=== PATIENT | female | born 1980 | race Caucasian/White ===

== ENCOUNTER 2019-10-19 11:32 | Emergency (ER) | payer SELFPAY ==
[2019-10-19 11:53] LABS: ABSOLUTE BASOPHILS # (AUTO) 0.1 10^3/uL (0.0-0.2); ABSOLUTE EOSINOPHILS # (AUTO) 0.3 10^3/uL (0.0-0.6); ABSOLUTE LYMPHOCYTES (AUTO) 2.2 10^3/uL (0.5-4.7); ABSOLUTE MONOCYTES (AUTO) 0.6 10^3/uL (0.1-1.4); EOSINOPHILS % (AUTO) 3.5 % (0-6); HEMATOCRIT 40.7 % (36.0-47.0); HEMOGLOBIN 13.9 g/dL (12.0-15.5); INTERNATIONAL RATION (INR) 1.06; LYMPHOCYTES % (AUTO) 31.2 % (13-45); MEAN CORPUSCULAR HEMOGLOBIN 27.6 pg (27.0-33.4); MEAN CORPUSCULAR HGB CONC 34.2 g/dL (32.0-36.0); MEAN CORPUSCULAR VOLUME 81 fl (80-97); MONOCYTES % (AUTO) 8.7 % (3-13); PLATELET COUNT 304 10^3/uL (150-450); RED BLOOD COUNT 5.04 10^6/uL (3.72-5.28); RED CELL DISTRIBUTION WIDTH 13.9 % (11.5-14.0); SEGMENTED NEUTROPHILS % (AUTO) 55.6 % (42-78); TOTAL CELLS COUNTED % (AUTO) 100 %; WHITE BLOOD COUNT 7.2 10^3/uL (4.0-10.5)
[2019-10-19 11:54] LABS: PARTIAL THROMBOPLASTIN TIME 28.8 SEC (23.5-35.8)
--- NOTE | 2019-10-19 11:56 | ER Document Report ---
ED Neuro Symptoms/Deficit - General Stated Complaint: POSSIBLE STROKE Mode of Arrival: Medic Information source: Patient, Emergency Med Personnel TRAVEL OUTSIDE OF THE [place] IN LAST 30 DAYS: Yes - HPI Notes: Patient presents with the sudden onset of trouble speaking at 10:40 AM this morning. Last known well time will be 10:40 AM on 10/19/2019. Patient says that she woke up this morning with a headache. Apparently was mild to moderate and diffuse. It was constant and a throbbing sensation. She states she does not normally get migraines. 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 She also states that both sides of her face feel numb. Patient denies any vision changes. She has not noticed any trouble swallowing. She has had trouble finding words. She also feels that her arms and legs are weak. She has had no nausea. No fevers no recent falls or trauma. No similar episodes in the past that is known. - Related Data Allergies/Adverse Reactions: Sulfa (Sulfonamide Antibiotics) Allergy (Verified 10/19/19 11:47) Past Medical History - General Information source: Patient - Social History Smoking Status: Never Smoker Chew tobacco use (# tins/day): No Frequency of alcohol use: None Drug Abuse: None Family History: Reviewed & Not Pertinent Patient has suicidal ideation: No Patient has homicidal ideation: No Review of Systems - Review of Systems Constitutional: denies: Chills, Fever Cardiovascular: denies: Chest pain, Palpitations Respiratory: denies: Cough, Short of breath -: Yes All other systems reviewed and negative Physical Exam - Vital signs Vitals: Temp Resp Pulse Ox 98.5 F 19 100 10/19/19 11:39 10/19/19 11:39 10/19/19 11:39 Interpretation: Hypertensive - General General appearance: Alert, Anxious In distress: None - HEENT Head: Normocephalic, Atraumatic Eyes: Normal Pupils: PERRL - Respiratory Respiratory status: No respiratory distress Chest status: Nontender Breath sounds: Normal Chest palpation: Normal - Cardiovascular Rhythm: Regular Heart sounds: Normal auscultation Murmur: No - Abdominal Inspection: Normal Distension: No distension Bowel sounds: Normal Tenderness: Nontender Organomegaly: No organomegaly - Back Back: Normal, Nontender - Extremities General upper extremity: Normal inspection, Nontender, Normal color, Normal ROM, Normal temperature General lower extremity: Normal inspection, Nontender, Normal color, Normal ROM, Normal temperature, Normal weight bearing. No: Miladis's sign - Neurological Neuro grossly intact: Yes Cognition: Normal Orientation: AAOx4 Star Coma Scale Eye Opening: Spontaneous Yemi Coma Scale Verbal: Oriented Star Coma Scale Motor: Obeys Commands Star Coma Scale Total: 15 Speech: Other - Patient articulates words normally but seems to stutter and have trouble finding words. Cranial nerves: Normal Cerebellar coordination: Other - Patient's [id number] is normal bilaterally. Due to bilateral lower extremity weakness she has trouble bilaterally with [id number]. 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 - Psychological Associated symptoms: Anxious, Tearful - Skin Skin Temperature: Warm Skin Moisture: Dry Skin Color: Normal Course - Re-evaluation Re-evalutation: 10/19/19 11:55 I immediately assessed the patient upon arrival. Patient went straight to CT s can. CT scan is returned negative. I then performed a NIH stroke scale. This was done on the paper packet and I signed and dated this form. She was an NIH stroke scale of 7 upon presentation. I have paged the neurologist from [facility] at approximate 11:50 AM and I am currently awaiting return phone call. I reassessed patient approximately 12:15 PM. She has significant improvement in the left upper extremity as she no longer has a drift. She also has significant improvement of her lower extremities and can hold both legs off the bed against gravity for 10 seconds. She also has significant improvement of her speech and it is essentially normal now. I have discussed the case with the neurologist at [facility] and since she has such rapid improvement we will hold off on TPA and try to obtain an MRI stat. 10/19/19 12:22 10/19/19 14:58 Patient reexamined at this time. Patient's neurological exam is back to normal. Patient has a negative MRI and CT scan. I have discussed the case with neurology who feels that no further intervention or imaging is required. Patient is not a TPA candidate due to all symptoms resolving and have been negative MRI and CT. Patient now states she did have a similar episode 2 to 3 years ago that was a complex migraine. This is suspicious for a similar cause. I have instructed her that she should follow-up with neurology as an outpatient for this. I also discharged the patient with Fimartellet. - Vital Signs Vital signs: Temp Pulse Resp BP Pulse Ox 98.5 F 20 152/104 H 98 10/19/19 11:39 10/19/19 11:41 10/19/19 11:41 10/19/19 11:42 - Laboratory Result Diagrams: 10/19/19 11:40 10/19/19 11:40 - Diagnostic Test Radiology reviewed: Image reviewed, Reports reviewed - EKG Interpretation by Me EKG shows normal: Sinus rhythm Rate: Normal - 77 [place]/QRS: No: Right axis deviation, Left axis deviation, Bifasicular block ED [employer]/Exc Criteria - Date/Time patient last known well: Date/Time: 1040am - Date/Time patient arrived in ED: _: 1110am - Inclusion Criteria: 1: Patient presented to ED within 3 hours of acute ischemic stroke symptom onset? -: Yes 2: Did baseline CT exclude intracranial hemorrhage and/or other risk factors? -: Yes 3: Is the age of the patient 18 years of age or greater? -: Yes : If any of the above questions are answered "NO" then stop, patient is not a candidate for Alteplase, : If all of the above questions are answered "YES" then continue with Exclusion Criteria. - Exclusion Criteria: 1: Is there evidence of intracranial hemorrhage on baseline CT? -: No 2: Is there suspicion of subarachnoid hemorrhage (even if CT negative)? -: No 3: Is there a history of serious head trauma, recent previous stroke or UT within 3 months? -: No 4: Does the patient have a clinical presentation consistent with UT or post-UT pericarditis? -: No 5: Is there history of intracranial hemorrhage? -: No 6: On repeated measurement is Systolic BP greater than 185mmHg or Diastolic BP greater that 110 mmHg and is aggressive treatment needed to reduce blood pressure to these limits (e.g. constant infusion of an anti-hypertensive)? 7: Did the patient awake with stroke symptoms? -: No 8: Has the patient had a lumbar puncture or an arterial puncture at a non- compressile site within 7 days? -: No 9: With in the last 14 days did the patient have surgery or major trauma? -: No 10: Is the patient or less than 2 weeks? -: No 11: Was there any active bleeding or acute trauma? -: No 12: Does the patient have intracranial neoplasm, arteriovenous malformation or aneurysm? -: No 13: Does the patient have abnormal glucose (less than 50 or greater than 400mg/dl)? Record glucose in Comment. -: No 14: Patient has rapidly improving symptoms at the time Alteplase is to be Admi nistered. -: Yes 15: Does the patient have any risks for bleeding, including but not limited to: a.: Current use of Coumadin with PT greater than 15 seconds or INR greater than 1.7. b.: Current use of Pradaxa (Dabigatran). c.: Heparin administereed within the past 48 hours and PTT elevated. d.: Platelet count less than 100,000/mm. e.: Major surgery or serious trauma within 14 days. f.: Gastrointestinal or gynecological urinary bleeding within 14 days. g.: Myocardial Infarction (UT) within 3 months. -: No : If the answer to any of the above questions is "YES" then stop, the patient is not a candidate for Alteplase. : If the answer to all of the above questions is "NO" then the patient may be eligible for the Administration of Alteplase. : If the patient is noted to have seizure activity at onset of Stroke symptoms; Consult Neurologist for further evaluation. - The patient is: -: Included and is eligible to receive Alteplase. *Initiate bed placement at higher level of care* --: No Reviewed risks & benefits of thrombolytic therapy: I have reviewed the risks and benefits of thrombolytic therapy with the patient and/or his/her family. -: Excluded and not eligible to receive Alteplase for the above exclusions. --: Yes -: Excluded and not eligible to receive Alteplase for other reasons (specify in comments): - Diagnosis of TIA: -: Patient presented with transient symptoms that are now resolved and no other neurologic findings are currently present. List symptoms in comments. -: No -: Patient is NOT a candidate for tPA. -: Yes -: ____(put name in comment) has been consulted for admission and continued evaluation of risk factor assessment. Comment: pt most likely has complex migraine Discharge - Discharge Clinical Impression: Migraine Qualifiers: Migraine type: other Status migrainosus presence: with status migrainosus Intractability: intractable Qualified Code(s): G43.811 - Other migraine, intractable, with status migrainosus Condition: Stable Disposition: HOME, SELF-CARE Instructions: Headache ([facility]) Prescriptions: Butalb/Acetaminophen/Caffeine [Fioricet (50-325-40 mg) Tablet] 1 tab PO Q4HP PRN #30 tab PRN Reason: Forms: Return to Work
[2019-10-19 11:57] LABS: PROTHROMBIN TIME 13.8 SEC (11.4-15.4)
--- NOTE | 2019-10-19 11:57 | RADIOLOGY REPORT (SQ) ---
EXAM DESCRIPTION: CT HEAD WITHOUT COMPLETED DATE/TIME: 10/19/2019 11:41 am REASON FOR STUDY: STROKE ALERT; SLURRED SPEECH COMPARISON: None. TECHNIQUE: Axial images acquired through the brain without intravenous contrast. Images reviewed wi th bone, brain and subdural windows. Additional sagittal and coronal reconstructions were generated. Images stored on PACS. All CT scanners at this facility use dose modulation, iterative reconstruction, and/or weight based d osing when appropriate to reduce radiation dose to as low as reasonably achievable (ALARA). [facility]: Dose Right [facility]: CareDose [facility]: Dose Right [facility]: Teradose 4D [facility]: Juristat RADIATION DOSE: mGy. LIMITATIONS: None. FINDINGS: VENTRICLES: Normal size and contour. CEREBRUM: No masses. No hemorrhage. No midline shift. No evidence for acute infarction. Normal gra y/white matter differentiation. No areas of low density in the white matter. CEREBELLUM: No masses. No hemorrhage. No alteration of density. No evidence for acute infarction. EXTRAAXIAL SPACES: No fluid collections. No masses. ORBITS AND GLOBE: No intra- or extraconal masses. Normal contour of globe without masses. CALVARIUM: No fracture. PARANASAL SINUSES: No fluid or mucosal thickening. SOFT TISSUES: No mass or hematoma. OTHER: No other significant finding. IMPRESSION: NORMAL BRAIN CT WITHOUT CONTRAST. EVIDENCE OF ACUTE STROKE: NO. COMMENT: Pertinent positive or negative findings of the imaging study reported as a CRITICAL EXAM clark FUENTES at11:49 on 10/19/2019. Category of Critical Exam: Stroke alert. Quality ID # [id number]: Final reports with documentation of one or more dose reduction techniques (e.g., Au tomated exposure control, adjustment of the mA and/or kV according to patient size, use of iterative reconstruction technique) TECHNICAL DOCUMENTATION: JOB ID: [id number] 2010 [employer]- All Rights Reserved Reading location - IP/workstation name: [email or web address]
--- NOTE | 2019-10-19 12:07 | RADIOLOGY REPORT (SQ) ---
EXAM DESCRIPTION: CHEST SINGLE VIEW COMPLETED DATE/TIME: 10/19/2019 11:52 am REASON FOR STUDY: STROKE ALERT; SLURRED SPEECH COMPARISON: None. EXAM PARAMETERS: NUMBER OF VIEWS: One view. TECHNIQUE: Single frontal radiographic view of the chest acquired. RADIATION DOSE: NA LIMITATIONS: None. FINDINGS: LUNGS AND PLEURA: No opacities, masses or pneumothorax. No pleural effusion. MEDIASTINUM AND HILAR STRUCTURES: No masses. Contour normal. HEART AND VASCULAR STRUCTURES: Heart normal in size. Normal vasculature. BONES: No acute findings. HARDWARE: None in the chest. OTHER: No other significant finding. IMPRESSION: NO ACUTE RADIOGRAPHIC FINDING IN THE CHEST. TECHNICAL DOCUMENTATION: JOB ID: [id number] 2010 [employer]- All Rights Reserved Reading location - IP/workstation name: [email or web address]
[2019-10-19 12:10] LABS: ALKALINE PHOSPHATASE 51 U/L (38-126); ANION GAP 9 (5-19); ASPARTATE AMINO TRANSFERASE 27 U/L (14-36); BILIRUBIN,TOTAL 0.9 mg/dL (0.2-1.3); BLOOD UREA NITROGEN 10 mg/dL (7-20); CALCIUM 8.8 mg/dL (8.4-10.2); CARBON DIOXIDE 23 mmol/L (22-30); CHLORIDE 105 mmol/L (98-107); CREATINE KINASE 83 U/L (30-135); GLUCOSE 94 mg/dL (75-110); POTASSIUM 3.5 mmol/L (3.6-5.0); TOTAL PROTEIN 7.5 g/dL (6.3-8.2)
[2019-10-19 12:18] LABS: CREATINE KINASE MB 1.45 ng/mL (<4.55)
[2019-10-19 12:24] LABS: TROPONIN I < 0.012 ng/mL
--- NOTE | 2019-10-19 13:36 | RADIOLOGY REPORT (SQ) ---
EXAM DESCRIPTION: MRI HEAD WITHOUT COMPLETED DATE/TIME: 10/19/2019 1:18 pm REASON FOR STUDY: trouble speaking/facial numbness COMPARISON: CT dated 10/19/2019. TECHNIQUE: Multiplanar imaging includes non-contrasted T1, T2, FLAIR, and diffusion with ADC map seq uences. Images stored on PACS. LIMITATIONS: None. FINDINGS: ANATOMY: No anomalies. Normal vascular flow voids. Pituitary fossa normal. CSF SPACES: Normal in size and contour. No hemorrhage. CEREBRUM: Sulci and gyri normal in size and contour. Normal white matter signal on FLAIR imaging. No evidence of hemorrhage, mass, or extraaxial fluid collection. POSTERIOR FOSSA: No signal alteration. No hemorrhage. No edema, masses or mass effect. Internal judy tory canals, cerebello-pontine angles, mastoids normal. DIFFUSION IMAGING: Negative for acute or sub-acute infarction. ORBITS: No masses. Globes normal. PARANASAL SINUSES: No fluid levels. Mucosa normal. OTHER: No other significant finding. IMPRESSION: NORMAL MRI OF THE BRAIN WITHOUT INTRAVENOUS GADOLINIUM CONTRAST. EVIDENCE OF ACUTE STROKE: NO. COMMENT: Pertinent positive or negative findings of the imaging study reported as a CRITICAL EXAM t o BEATRICE MARTINEZ MD at13:29 on 10/19/2019. Category of Critical Exam: Stroke alert. TECHNICAL DOCUMENTATION: JOB ID: [id number] 2010 [employer]- All Rights Reserved Reading location - IP/workstation name: [email or web address]
[2019-10-19] MEDS ORDERED: BUTALB/ACETAMINOPHEN/CAFFEINE 1 TAB EACH PO ONE (15:06)
[2019-10-19 15:32] VITALS: BP 109/72
--- NOTE | 2019-10-19 17:05 | EKG REPORT ---
SEVERITY:- BORDERLINE ECG - SINUS RHYTHM PROBABLE LEFT ATRIAL ABNORMALITY MINIMAL ST DEPRESSION, ANTEROLATERAL LEADS : Confirmed by: Daisy Saucedo MD 19-Oct-2019 17:04:14
== END 2019-10-19 15:38 | disposition home or self-care (01) ==
LOC: ER 11:32
DX: G43.811 Other migraine, intractable, with status migrainosus (principal); Z88.2 Allergy status to sulfonamides
CPT/HCPCS: 93005; 99285; 36415; 82553; 82962; 82550; 85025; 85610; 85730; 80053; 84484; 70551; 71045; 70450; 93010; J3490